=== PATIENT | female | born 1930 | race Caucasian/White ===

== ENCOUNTER 2019-04-30 23:17 | Inpatient (IN) | payer OTHER ==
[~2019-04-30] VITALS: Ht 152.4 cm; Wt 44.5 kg
[2019-04-30 23:18] VITALS: BP 74/34
[2019-04-30] MEDS ORDERED: LISINOPRIL2.5 MG PO (23:26)
[2019-04-30] MEDS ORDERED: FOSAMAX 70 MG T70 MG PO (23:26)
[2019-04-30] MEDS ORDERED: SUPER THERAVIT1 EACH PO (23:26)
[2019-04-30] MEDS ORDERED: CALCIUM 600 +1 EA17 PO (23:27)
[2019-04-30] MEDS ORDERED: IPRAT-ALBUT 0.5-3 ML INH (23:28)
[2019-04-30 23:48] LABS: HEMATOCRIT 45.1 % (37.0-47.0); HEMOGLOBIN 15.2 gm/dL (12.0-15.0); MCH 31.3 pg (26.0-34.0); MCHC 33.6 g/dL (28.0-37.0); NUCLEATED RBCS 0 /100WBC; PLATELET COUNT* 265 thou/uL (150-400); RBC 4.85 mil/uL (4.20-5.00); RDW-CV 12.8 % (10.5-14.5); WBC 14.1 thou/uL (4.0-11.0)
[2019-05-01] VITALS (51 sets, daily range): BP systolic 78–124; BP diastolic 40–65
[2019-05-01 00:09] LABS: CALCIUM 8.3 mg/dL (8.5-10.1); CREATININE 2.7 mg/dL (0.6-1.3); POTASSIUM 4.1 mmol/L (3.5-5.1)
[2019-05-01 00:16] LABS: INR 1.1; PROTIME 10.9 Seconds (9.20-11.50)
[2019-05-01 00:22] LABS: ALBUMIN 3.3 g/dL (3.4-5.0); TOTAL BILIRUBIN 0.6 mg/dL (<0.1-1.0); TOTAL PROTEIN 6.9 g/dL (6.4-8.2)
[2019-05-01 00:39] LABS: URINE BLOOD 2+ (Negative); URINE CLARITY CLEAR; URINE COLOR DARK YELLOW; URINE GLUCOSE-RANDOM TRACE (Negative); URINE KETONES TRACE (Negative); URINE LEUKOCYTES-REFLEX 1+ (Negative); URINE NITRITE-REFLEX NEGATIVE (Negative); URINE PROTEIN 3+ (Negative)
[2019-05-01 00:52] LABS: URINE BILIRUBIN 1+ (Negative)
[2019-05-01 00:54] LABS: ICTOTEST (BILI CONFIRMATORY) Positive (Negative)
[2019-05-01 01:11] LABS: ABSOLUTE LYMPHOCYTES 0.7 thou/uL (0.8-5.3); ABSOLUTE MONOCYTES 0.3 thou/uL (0.0-1.2); ABSOLUTE NEUTROPHILS 13.1 thou/uL (1.6-8.1); PLATELET ESTIMATE ADEQUATE
[2019-05-01 01:34] LABS: MUCUS 0-3 Light strn/LPF (None Seen); SQUAMOUS 0-3 Few /LPF (0-3)
[2019-05-01 01:35] LABS: HYALINE CASTS 4-10 Moderate /LPF (None Seen)
[2019-05-01 01:36] LABS: CRYSTALS None Seen /LPF (None Seen)
[2019-05-01 01:38] LABS: INFLUENZA A ANTIGEN Negative (Negative); INFLUENZA B ANTIGEN Negative (Negative)
--- NOTE | 2019-05-01 11:09 | EKG ---
[place] [address] ELECTROCARDIOGRAM REPORT Name: FAVIO RUSHINGARET Room: [address] ADM IN M.R.#: [id number] Admission: 05/01/19 Attend Phys: Cindy Babb Discharge: Date of : 34 Report #: [id number] THIS REPORT FOR: //name// [facility] ED Test Date: 2019-04-30 Test Time: 23:32:16 Pat Name: AIDAN RUSHING Department: Room: [facility] Gender: F Car Runner: : [id number] Requested By: Vanna Moore Order Number: [id number] MD: Genaro Portillo Measurements Intervals [place] Rate: 127 P: 77 AK: 136 QRS: 25 QRSD: 110 T: 197 QT: 290 QTc: 422 Interpretive Statements Sinus tachycardia Left bundle-branch block No previous ECG available for comparison Electronically Signed On 05-01-2019 11:08:55 [employer]PER[employer] by Genaro Portillo [email or web address] <ELECTRONICALLY SIGNED> By: Genaro Portillo MD, [facility] 05/01/19 1108 [id number] Genaro Portillo MD, FACC /EPI
[2019-05-01 11:22] LABS: HEMATOCRIT 36.9 % (37.0-47.0); MCH 30.9 pg (26.0-34.0); MCHC 32.8 g/dL (28.0-37.0); MCV 94.3 fL (80.0-100.0); MPV 8.1 fl. (7.2-11.1); NUCLEATED RBCS 0 /100WBC; PLATELET COUNT* 227 thou/uL (150-400); RBC 3.92 mil/uL (4.20-5.00); RDW-CV 13.2 % (10.5-14.5); WBC 13.5 thou/uL (4.0-11.0)
[2019-05-01 11:26] LABS: HEMOGLOBIN 12.1 gm/dL (12.0-15.0)
[2019-05-01 11:34] LABS: POTASSIUM 3.1 mmol/L (3.5-5.1)
[2019-05-01 12:14] LABS: ABSOLUTE LYMPHOCYTES 0.5 thou/uL (0.8-5.3); ABSOLUTE MONOCYTES 1.2 thou/uL (0.0-1.2); ABSOLUTE NEUTROPHILS 11.7 thou/uL (1.6-8.1); PLATELET ESTIMATE ADEQUATE
[2019-05-02] VITALS (29 sets, daily range): BP systolic 85–122; BP diastolic 43–73
[2019-05-02 05:40] LABS: HEMATOCRIT 31.8 % (37.0-47.0); HEMOGLOBIN 10.7 gm/dL (12.0-15.0); MCH 31.1 pg (26.0-34.0); MCHC 33.5 g/dL (28.0-37.0); MCV 92.9 fL (80.0-100.0); MPV 8.2 fl. (7.2-11.1); RBC 3.43 mil/uL (4.20-5.00); RDW-CV 12.9 % (10.5-14.5); WBC 9.2 thou/uL (4.0-11.0)
[2019-05-02 05:53] LABS: ALBUMIN 2.2 g/dL (3.4-5.0); CALCIUM 6.6 mg/dL (8.5-10.1); CREATININE 1.3 mg/dL (0.6-1.3); MAGNESIUM 1.9 mg/dL (1.8-2.4); POTASSIUM 3.2 mmol/L (3.5-5.1); TOTAL BILIRUBIN 0.3 mg/dL (<0.1-1.0); TOTAL PROTEIN 4.8 g/dL (6.4-8.2)
[2019-05-02 12:05] LABS: CALCIUM 7.5 mg/dL (8.5-10.1); CREATININE 1.2 mg/dL (0.6-1.3)
[2019-05-03] VITALS (9 sets, daily range): BP systolic 90–135; BP diastolic 42–79
[2019-05-03 04:17] LABS: HEMATOCRIT 30.7 % (37.0-47.0); HEMOGLOBIN 10.3 gm/dL (12.0-15.0); MCHC 33.6 g/dL (28.0-37.0); MCV 92.2 fL (80.0-100.0); MPV 7.7 fl. (7.2-11.1); RBC 3.32 mil/uL (4.20-5.00); RDW-CV 13.1 % (10.5-14.5); WBC 8.2 thou/uL (4.0-11.0)
[2019-05-03 04:38] LABS: ALBUMIN 2.4 g/dL (3.4-5.0); CALCIUM 7.8 mg/dL (8.5-10.1); CREATININE 1.1 mg/dL (0.6-1.3); MAGNESIUM 1.9 mg/dL (1.8-2.4); POTASSIUM 3.5 mmol/L (3.5-5.1); TOTAL BILIRUBIN 0.4 mg/dL (<0.1-1.0); TOTAL PROTEIN 5.1 g/dL (6.4-8.2)
[2019-05-04 00:01] VITALS: BP 106/44
[2019-05-04 00:59] VITALS: BP 122/68
[2019-05-04 04:01] VITALS: BP 93/47
[2019-05-04 08:00] VITALS: BP 128/57
[2019-05-04 18:00] VITALS: BP 122/72
[2019-05-04 20:00] VITALS: BP 143/69
[2019-05-05 00:15] VITALS: BP 139/67
[2019-05-05 04:11] VITALS: BP 124/67
[2019-05-05 12:47] VITALS: BP 147/82
[2019-05-05 12:48] VITALS: BP 147/82
[2019-05-05 15:54] VITALS: BP 120/70
[2019-05-05 20:00] VITALS: BP 122/74
[2019-05-06] VITALS: BP 113/65
[2019-05-06 03:48] VITALS: BP 119/73
[2019-05-06 12:29] VITALS: BP 122/79
[2019-05-06 16:12] VITALS: BP 110/67
[2019-05-06 20:00] VITALS: BP 130/70
[2019-05-07 00:18] VITALS: BP 117/59
[2019-05-07 03:58] VITALS: BP 125/67
[2019-05-07 07:58] VITALS: BP 139/80
[2019-05-07] MEDS ORDERED: LEVAQUIN 750 M750 MG PO (10:00)
[2019-05-07] MEDS ORDERED: ACIDOPHILUS1 EAC4 PO (10:00)
[2019-05-07 10:16] VITALS: BP 139/80
[2019-05-07 11:50] VITALS: BP 137/84
== END 2019-05-07 15:35 | DRG 682 ==
LOC: M.ERS 23:17 → M.TBA-ER 05-01 01:07 → M.ICU 05-01 01:36 → M.TBA-ER 05-01 01:36 → M.ICU 05-01 01:36 → M.TBA-ER 05-01 02:38 → M.ICU 05-01 05:37 → M.2W 05-04 11:01
PROVIDERS: Emergency Medicine; Internal Medicine; ADMIT Family Medicine
DX: N17.0 Acute kidney failure with tubular necrosis (principal); G92 Toxic encephalopathy; N30.00 Acute cystitis without hematuria; E87.0 Hyperosmolality and hypernatremia; N18.3 Chronic kidney disease, stage 3 (moderate); I12.9 Hypertensive chronic kidney disease with stage 1 through stage 4 chronic kidney disease, or unspecified chronic kidney disease; B96.4 Proteus (mirabilis) (morganii) as the cause of diseases classified elsewhere; F03.90 Unspecified dementia, unspecified severity, without behavioral disturbance, psychotic disturbance, mood disturbance, and anxiety; E87.8 Other disorders of electrolyte and fluid balance, not elsewhere classified; Z79.899 Other long term (current) drug therapy